=== PATIENT | male | born 1950 | race Two or more races ===

== ENCOUNTER → 2024-07-11 | Outpatient (CLI) | payer MEDICARE, MEDICAID, SELFPAY ==
--- NOTE | 2024-07-11 10:54 | XR_ITS ---
Examination: Thoracolumbar spine 2 views Technique one AP lateral thoracolumbar spine 2 views Exam date and time: July 11, 2024 1103 hours INDICATIONS: Back pain radiating down the legs several years FINDINGS: No lumbar fracture Grade 1 anterolisthesis L4 on L5 Mild to moderate diffuse lumbar degenerative disc disease, most prominent L4-L5, L5-S1 IMPRESSION: Mild to moderate lumbar degenerative disc disease, most prominent L4-L5, L5-S1
== END | disposition home or self-care (01) ==
LOC: CDIM 10:10
PROVIDERS: PCP Student in an Organized Health Care Education/Training Program; Referring Provider Student in an Organized Health Care Education/Training Program; Visit Provider Student in an Organized Health Care Education/Training Program
DX: M51.369 Other intervertebral disc degeneration, lumbar region without mention of lumbar back pain or lower extremity pain (principal); M51.379 Other intervertebral disc degeneration, lumbosacral region without mention of lumbar back pain or lower extremity pain
CPT/HCPCS: 72080

== ENCOUNTER → 2024-08-17 | Outpatient (CLI) | payer MEDICARE, MEDICAID, SELFPAY ==
[2024-08-17 09:21] LABS: Collection Type, Urine Clean Catch
[2024-08-17 10:40] LABS: Bilirubin,Urine Negative (Negative); Blood,Urine Negative (Negative); Clarity,Urine Clear (Clear/Hazy); Color,Urine Lt-Yellow (Lt Yel-Yel); Culture Indicated,Urine Not Indicated; Glucose, Urine Negative (Negative); Hyaline Casts,Urine < 1 /hpf (0-1); Ketones,Urine Negative (Negative); Leukocyte Esterase,Urine Positive (Negative); Nitrite,Urine Negative (Negative); PH,Urine 6.5 (5.0-7.0); Protein,Urine Negative (Neg - Trace); RBC,Urine 2 /hpf (0-3); Specific Gravity,Urine 1.017 (1.001-1.035); Squamous Epithelial Cell,Urine 2 /hpf (0-5); Urobilinogen,Urine Negative mg/dL (0.0-1.0); WBC,Urine 7 /hpf (0-5)
[2024-08-19 07:01] LABS: Fecal Globin Result NOT DETECTED (NOT DETECTED)
== END | disposition home or self-care (01) ==
LOC: SLDO 09:14
PROVIDERS: Referring Provider Family Medicine; Visit Provider Family Medicine
DX: N40.1 Benign prostatic hyperplasia with lower urinary tract symptoms (principal); Z12.11 Encounter for screening for malignant neoplasm of colon
CPT/HCPCS: 81001; 82274; G0328

== ENCOUNTER → 2024-08-25 | Outpatient (CLI) | payer MEDICARE, MEDICAID, SELFPAY ==
--- NOTE | 2024-08-25 12:00 | XR_ITS ---
Examination: CT chest, without intravenous contrast. Sagittal and coronal 2-D reconstructions. Exam date and time: August 25, 2024 1244 hours INDICATIONS: Neck obtained attendance, smoking history 30 years CTDI:vol (mGy) 16 DLP: (mGycm) 620 Technique: Multiple 3.0 mm axial sections of the chest to been obtained. Bone and lung density settings are obtained. Sagittal and coronal 2-D reconstructions have been obtained. Low dose protocols were performed. One or more of the following dose reduction techniques were used; automated exposure control, adjustment of the mA and/or KV according to patient size, use of iterative reconstruction technique. Findings: Thoracic aortic calcification no aneurysmal dilatation Pulmonary artery segments are not enlarged Heavy calcification left anterior descending coronary artery No paratracheal tracheobronchial or bronchopulmonary adenopathy 2 mm pulmonary nodule posterior left lung image 118 2 mm pulmonary nodule right upper lobe image 146 2 mm pulmonary nodule anterior right upper lobe and right lower lobe image 181 3 mm pulmonary nodule left lower lobe image 206 No pneumonia or pulmonary edema No pleural disease No visualized liver splenic lesion Multiple gallstones Complex cystic lesion in the lower right lobe of the liver, 21 mm Perinephric stranding IMPRESSION: Noncalcified pulmonary nodules as above, recommend continued 6 month follow-up CT chest without contrast Recommend hepatic sonography of complex cystic lesion in the right lower lobe of the liver 21 mm
--- NOTE | 2024-08-25 12:30 | XR_ITS ---
Examination: Ultrasound abdominal aorta TECHNIQUE: Grayscale sonographic images abdominal aorta Date and time: August 25, 2024 1154 hours INDICATIONS: Screening examination for cardiovascular disease FINDINGS: Proximal aorta obscured by bowel gas Mid aorta transverse dimension 2.4 cm distal aorta transverse dimension 2.1 cm Left iliac 1.3 cm right iliac 1.2 cm IMPRESSION: Limited study with no abdominal aortic aneurysm demonstrated
== END | disposition home or self-care (01) ==
PROVIDERS: PCP Student in an Organized Health Care Education/Training Program; Referring Provider Student in an Organized Health Care Education/Training Program; Visit Provider Student in an Organized Health Care Education/Training Program
DX: Z13.6 Encounter for screening for cardiovascular disorders (principal); F17.210 Nicotine dependence, cigarettes, uncomplicated
CPT/HCPCS: 71271; 76770